=== PATIENT | male | born 2000 | race Two or more races ===

== ENCOUNTER 2024-03-01 18:06 | Emergency (ER) | payer OTHER ==
[~2024-03-01] VITALS: Ht 167.6 cm; Wt 77.1 kg
[2024-03-01 18:34] VITALS: BP 137/83; O2SAT 100
[2024-03-01 20:45] LABS: HEMATOCRIT 45.7 % (39.0-48.0); HEMOGLOBIN 15.9 g/dL (13-16.00); MEAN CELL VOLUME 91.2 fL (80.0-100.00); MEAN CORPUSCULAR HEMOGLOBIN 31.8 pg (27.00-32.0); MEAN CORPUSCULAR HGB CONC 34.8 g/dl (32.0-36.0); PLATELET COUNT 231 K/uL (150-450); RED BLOOD COUNT 5.01 M/uL (4.00-6.00); RED CELL DISTRIBUTION WIDTH 13.3 % (11.5-14.5)
== END 2024-03-01 22:07 | disposition home or self-care (01) ==
LOC: ER 18:08
DX: R00.0 Tachycardia, unspecified (principal); R42 Dizziness and giddiness; Z20.822 Contact with and (suspected) exposure to COVID-19

== ENCOUNTER 2024-10-08 15:55 | Emergency (ER) | payer OTHER ==
[~2024-10-08] VITALS: Ht 170.2 cm; Wt 72.6 kg
[2024-10-08 17:47] LABS: BASO % 0.2 % (0.1-1.2); EOS # 0.01 (0.04-0.54); EOS % 0.2 % (0.7-7.0); LYMPH # 1.16 (1.18-3.74); LYMPH % 26.5 % (19.3-53.1); MEAN PLATELET VOLUME 9.70 fl (9.4-12.4); MONO # 0.39 (0.24-0.82); MONO % 8.9 % (4.7-12.5); NEUT # 2.80 (1.56-6.13); NEUT % 64.0 % (34.0-71.1); RED CELL DISTRIBUTION WIDTH 12.1 % (11.6-14.4)
[2024-10-08 18:15] LABS: ALT/SGPT 43.0 U/L (12-78); AST/SGOT 23.0 U/L (15-37); BILIRUBIN TOTAL 0.63 mg/dL (0.3-1.2); BUN CREA RATIO 17.0 (7.0-25.0); CREATININE SERUM 1.03 mg/dL (0.70-1.30); GFR 90.3; GLOBULINA 3.2 G/DL (2.4-3.5); GLUCOSE FASTING 122.0 mg/dL (65-100); OSMOLALITY SERUM 281.0 MOSM/KG (275-295)
== END 2024-10-08 20:36 ==
LOC: ER 16:04
PROVIDERS: General Practice
DX: R00.2 Palpitations (principal)

== ENCOUNTER 2024-10-26 17:15 | Emergency (ER) | payer OTHER ==
[~2024-10-26] VITALS: Ht 170.2 cm; Wt 77.1 kg
== END 2024-10-26 21:40 | disposition home or self-care (01) ==
LOC: ER 17:22
DX: F41.0 Panic disorder [episodic paroxysmal anxiety] (principal); R00.2 Palpitations; F41.9 Anxiety disorder, unspecified